=== PATIENT | male | born 1970 | race Hispanic/Latino ===

== ENCOUNTER 2017-05-16 22:24 | Inpatient (IN) | payer SELFPAY ==
[2017-05-16 23:05] LABS: #Eosinphils 0.1 thou/uL (0.0-0.7); #Lymphocytes 0.7 thou/uL (1.20-3.40); #Monocytes 0.8 thou/uL (0.11-0.59); #Neutrophils 11.8 thou/uL (1.40-6.50); %Eosinophils 0.5 % (0.0-10.0); %Lymphocytes 5.1 % (21.0-51.0); %Monocytes 6.1 % (0.0-10.0); Hematocrit 45.2 % (42.0-52.0); Mean Platelet Volume 7.2 fL (7.4-10.4); Red Blood Cell (RBC) Count 4.99 mill/uL (4.70-6.10); White Blood Cell (WBC) Count 13.4 thou/uL (4.8-10.8)
[2017-05-16] MEDS ORDERED: Acetaminophen 500 MG TAB ONE (23:14)
[2017-05-16 23:21] LABS: Bilirubin Negative (Negative); Blood, Urine Moderate (Negative); Glucose, Urine (Dipstick) Negative (Negative); Ketone, Urine Negative (Negative); Nitrite Negative (Negative); Protein, Urine (Dipstick) Trace mg/dL (Neg-Trace)
[2017-05-16 23:25] LABS: Bacteria/HPF 1+ HPF (None Seen); Hyaline Casts/LPF 0-3 HYALINE CAST LPF (0-3 Hyaline); WBC/HPF 21-50 HPF (0-3)
[2017-05-16 23:26] LABS: ALT (SGPT) 48 U/L (8-55); AST (SGOT) 43 U/L (5-34); Alkaline Phosphatase 119 U/L (40-150); Anion Gap 15 mmol/L (10-20); BUN (Urea Nitrogen) 14 mg/dL (8.9-20.6); Bilirubin, Total 1.4 mg/dL (0.2-1.2); Calc. Creatinine Clearance 0 mL/min (70-130); Calcium 9.9 mg/dL (7.8-10.44); Carbon Dioxide 24 mmol/L (22-29); Chloride 100 mmol/L (98-107); Estimated GFR-MDRD 64; Globulin 3.9 g/dL (2.4-3.5); Protein, Total 8.4 g/dL (6.0-8.3)
[2017-05-17 00:12] LABS: Troponin I 0.017 ng/mL (< 0.028)
[2017-05-17] MEDS ORDERED: CEFTRIAXONE ROCEPHIN IVPB SCH (00:45)
[2017-05-17] MEDS ORDERED: SODIUM CHLORIDE 0.9% IVPB SCH (00:45)
[2017-05-17] MEDS ORDERED: Ondansetron HCl/PF 4 MG/2 ML Vial ONE (00:57)
[2017-05-17] MEDS ORDERED: cefTRIAXone\\ROCEPHIN 2 GM in Sodium Chloride 0.9% 100 ML IVPB SCH (01:00)
[2017-05-17] MEDS ORDERED: Ondansetron HCl/PF 4 MG/2 ML Vial IVP PRN ×2 (02:25→03:19)
[2017-05-17] MEDS ORDERED: Acetaminophen 325 MG TAB PO PRN (02:25)
[2017-05-17] MEDS ORDERED: Ondansetron ODT 4 MG TAB SL PRN (02:25)
[2017-05-17 02:42] VITALS: BMI 37.4
[2017-05-17] MEDS ORDERED: Senokot 8.6 MG TAB PO PRN (03:19)
[2017-05-17] MEDS ORDERED: Diabetic Tussin 200 MG/10 ML UDCUP PO PRN (03:19)
[2017-05-17] MEDS ORDERED: Nitroglycerin 0.4 MG TAB (25 Tab Bottle) SL PRN (03:19)
[2017-05-17] MEDS ORDERED: Bisacodyl 5 MG TAB PO PRN (03:19)
[2017-05-17] MEDS ORDERED: hydrALAZINE 20 MG/ML VIAL SLOW IVP PRN (03:19)
[2017-05-17] MEDS ORDERED: Lorazepam 1 MG TAB PO PRN (03:19)
[2017-05-17] MEDS ORDERED: Calcium Carbonate 500 MG ChewTAB PO PRN (03:19)
[2017-05-17] MEDS ORDERED: Benzonatate 100 MG CAP PO PRN (03:19)
[2017-05-17] MEDS ORDERED: HYDROcodone/Acetaminophen 5/325 mg Tablet PO PRN (03:19)
[2017-05-17] MEDS ORDERED: Mag-Al 1200 mg/1200 mg/30 ML UDCUP PO PRN (03:19)
[2017-05-17] MEDS ORDERED: Potassium Chloride 20 MEQ TAB PO SCH (03:30)
[2017-05-17] MEDS: Sodium Chloride 0.9% 1,000 ML IV SCH ×2 (03:45→14:18)
--- NOTE | 2017-05-17 04:28 | HP ---
PRIMARY CARE PHYSICIAN: None. CHIEF COMPLAINT: Generalized bodyaches, malaise and fever, abdominal pain and cough. HISTORY OF PRESENT ILLNESS: Mr. Jaramillo is a 46-year-old male without any significant past m edical history who presented to the emergency room with the above complaints. The history is mainly obtained by the patient himself. Electronic medical records have been reviewed. According to Mr. Jaramillo he has been feeling poorly for the last 3 days. His symptoms started as body aches and he has been having subjective fevers, abdominal pain, nausea, cough, and some shortness of breath. He denies any chest pain. He denies any sick contacts. He denies any vomiting or diarrhe a. He denies any dysuria, frequency or urgency. Upon presentation to the emergency room, his blood pressure was 187/114 with a pulse of 124. He was saturating 96% on room air, his temperature was elevated to 102.9. He was found to have leukocytos is on lab examination as well as a mildly elevated bilirubin and AST. His urinalysis showed +1 bact eria with WBC, leukocyte esterase, but also along with squamous epithelial cells. A CT scan of the abdomen and pelvis was done with a presumptive diagnosis of urinary tract infection to rule out richard l stones. Formal report is pending at this time. He has received 2 grams of Rocephin in the emerge ncy room for presumed UTI and is now being admitted for meeting sepsis criteria due to a urinary tra ct infection likely. PAST MEDICAL HISTORY: Reviewed with the patient and none. PAST SURGICAL HISTORY: History of penile surgery. SOCIAL HISTORY: He drinks 2-3 beers daily. No history of tobacco abuse. FAMILY HISTORY: He denies any history of stroke, hypertension, diabetes, coronary artery disease in his family. ALLERGIES: None. MEDICATIONS: None. PSYCHIATRIC ILLNESS: None. REVIEW OF SYSTEMS: The following complete review of systems was negative, unless otherwise mentioned in the HPI or below: Constitutional: Weight loss or gain, ability to conduct usual activities. Skin: Rash, itching. Eyes: Double vision, pain. ENT/Mouth: Nose bleeding, neck stiffness, pain, tenderness. Cardiovascular: Palpitations, dyspnea on exertion, orthopnea. Respiratory: Shortness of breath, wheezing, cough, hemoptysis, fever or night sweats. Gastrointestinal: Poor appetite, abdominal pain, heartburn, nausea, vomiting, constipation, or diarrhea. Genitourinary: Urgency, frequency, dysuria, nocturia. Musculoskeletal: Pain, swelling. Neurologic/Psychiatric: Anxiety, depression. Allergy/Immunologic: Skin rash, bleeding tendency. LABORATORY DATA: CBC shows WBCs at 13.4 with 88% neutrophils, otherwise unremarkable. Serum chemis tries show potassium of 3.4. Blood sugar 137. Lactic acid 1. Total bilirubin 1.4, AST 43. Cardia c enzymes normal. Urinalysis as above. Chest x-ray is unremarkable by my review. PHYSICAL EXAMINATION: VITAL SIGNS: Temperature 99.1, pulse of 85, respirations 20, saturating 98% on room air, blood pres sure 151/71. GENERAL: In no acute distress, awake, alert, oriented x3 and appears nontoxic and comfortable. HEENT: Mucous membrane is moist and pink. No oropharyngeal exudate or erythema. Head is normoceph alic, atraumatic. Pupils equal, reactive to light and accommodation. Extraocular movements intact. NECK: Supple without any lymphadenopathy, JVD or bruit. CHEST: Clear to auscultation without any wheezing, rales or rhonchi. Rate and rhythm is regular wi thout any murmur, rubs or gallops. ABDOMEN: Soft, nontender, nondistended with positive bowel sounds. EXTREMITIES: Free of any cyanosis, clubbing, or edema. NEUROLOGIC: Nonfocal. SKIN: Free of any rashes or bruises, feels warm and dry to touch. PSYCHIATRIC: Normal affect. VASCULAR: +2 pedal pulses felt bilaterally. IMPRESSION AND PLAN: 1. Early sepsis with urinary tract infection. He will be continued on IV antibiotics. We will fol low the results of the CT scan to rule out nephrolithiasis as the cause. His urine sample will be r epeated as his previous sample appears contaminated. At this time, it is unclear whether his sympto ms are due to a viral illness or actual urinary tract infection. He will be on treatment neverthele ss until proven otherwise. Influenza testing has been done and negative and he has no evidence of p neumonia on the chest x-ray. 2. Hypertension. The patient most likely has essential hypertension that has not been diagnosed so far. We will start him on low dose amlodipine and monitor his blood pressure. 3. Hyperglycemia. Check hemoglobin A1c, but the patient denies any family history of diabetes. 4. Deep venous thrombosis and gastrointestinal prophylaxis. 5. PRN medication orders. DISPOSITION: The patient will be admitted for presumed UTI leading to sepsis-like criteria on lab e xamination. Further management will depend upon his clinical course. Estimated length of stay at [facility] 2-3 midnight. Follow the results of the urine and blood cultures.
[2017-05-17 05:38] LABS: Hemoglobin A1c 4.9 % (4.0-6.0)
[2017-05-17 05:51] LABS: Band 4 % (5-11); Mean Platelet Volume 7.4 fL (7.4-10.4); Myelocyte 1 % (0-0); Neutrophil 84 % (42-75); White Blood Cell (WBC) Count 10.1 thou/uL (4.8-10.8)
[2017-05-17 05:52] LABS: Amphetamine Not Detected (NotDetected); Methadone Not Detected (NotDetected); Methamphetamine Not Detected (NotDetected)
[2017-05-17] MEDS: Acetaminophen 325 MG TAB PO PRN ×3 (06:20→20:50)
[2017-05-17 06:22] LABS: Anion Gap 10 mmol/L (10-20); BUN (Urea Nitrogen) 10 mg/dL (8.9-20.6); Calc. Creatinine Clearance 128 mL/min (70-130); Calcium 8.3 mg/dL (7.8-10.44); Carbon Dioxide 24 mmol/L (22-29); Chloride 107 mmol/L (98-107); Estimated GFR-MDRD Greater than 90
[2017-05-17 06:51] LABS: Bilirubin Negative (Negative); Blood, Urine Moderate (Negative); Glucose, Urine (Dipstick) Negative (Negative); Ketone, Urine Negative (Negative); Nitrite Negative (Negative); Protein, Urine (Dipstick) Trace mg/dL (Neg-Trace); Urobilinogen 0.2 mg/dL (0.2-1.0)
--- NOTE | 2017-05-17 07:09 | RAD ---
AP VIEW OF CHEST: Date: 05/16/17 INDICATION: Fever, body aches, and abdominal pain. IMPRESSION: No acute cardiopulmonary abnormality. COMMENTS: No comparisons are available. Lungs are clear. Cardiomediastinal silhouette is within normal limits. No acute osseous abnormality is evident. POS: [facility]
[2017-05-17 07:15] LABS: Bacteria/HPF None Seen HPF (None Seen); Hyaline Casts/LPF 0-3 HYALINE CAST LPF (0-3 Hyaline); RBC/HPF 0-3 HPF (0-3); Squamous Epithelial 0-3 HPF (0-3)
[2017-05-17] MEDS: Amlodipine 5 MG TAB PO SCH (08:51)
[2017-05-17] MEDS: Enoxaparin Sodium 40 MG/0.4 ML SYRINGE SC SCH (08:52)
--- NOTE | 2017-05-17 08:56 | CT ---
PRELIMINARY REPORT/[facility]/EMERGENCY AFTER HOURS PROCEDURE: EXAM: CT Abdomen and Pelvis Without Intravenous Contrast EXAM DATE/TIME: 05/17/2017 12:53 AM CLINICAL HISTORY: 46 years old, male; Pain; Abdominal pain; Generalized; Patient HX: R/O stone TECHNIQUE: Axial computed tomography images of the abdomen and pelvis without intravenous contrast. Coronal reformatted images were created and reviewed. COMPARISON: No relevant prior studies available. FINDINGS: Lower thorax: No acute findings. ABDOMEN: Liver: Suspected fatty infiltration of the liver. Gallbladder and bile ducts: Unremarkable. No calcified stones. No ductal dilation. Pancreas: Unremarkable. No ductal dilation. Spleen: Unremarkable. No splenomegaly. Adrenals: Unremarkable. No mass. Kidneys and ureters: Rounded 1-3 mm stones bilateral kidneys. No evidence of stones within the urete rs or bladder. No hydronephrosis. Stomach and bowel: No evidence of bowel obstruction. No mucosal thickening. Appendix: Visualized portions of appendix appear normal. PELVIS: Bladder: See above. Reproductive: Prostate appears within normal limits size with marginated the surrounding fat. ABDOMEN and PELVIS: Intraperitoneal space: Unremarkable. No free air. No significant fluid collection. Bones/joints: No acute fracture. No dislocation. Soft tissues: Rounded 1 cm fat and fluid containing umbilical hernia. Vasculature: Unremarkable. No abdominal aortic aneurysm. Lymph nodes: Unremarkable. No enlarged lymph nodes. IMPRESSION: 1. No evidence of bowel obstruction. 2. Bilateral renal nonobstructive stones. No evidence of obstructive uropathy or obstructive nephrop athy. 3. Possible mild prostatitis. 4. Suspected fatty infiltration of the liver. Thank you for allowing us to participate in the care of your patient. Dictated and Authenticated by: Suzan Machado MD 05/17/2017 1:58 AM Central Time ([place] \T\ [place]) FINAL REPORT EMERGENCY AFTER HOURS CT ABDOMEN AND PELVIS WITHOUT IV CONTRAST: Date: 05/17/17 HISTORY: Abdominal pain, fever, chills, and body aches for past 3 days. IMPRESSION: 1. Tiny, nonobstructing, approximately 2.0 mm calculus inferior pole right kidney. No additional re nal or ureteral calculi are seen bilaterally, and there is no hydronephrosis. 2. Fatty infiltration of the liver. 3. No CT evidence of appendicitis. 4. Very small, fat-containing, umbilical hernia with suggestion of a tiny amount of fluid within th e hernia. 5. Minimal nonspecific stranding adjacent to the prostate gland. 6. No fluid collection or free fluid is seen in the abdomen or pelvis. Findings are in agreement with the preliminary report by Anita. POS: [facility]
[2017-05-17] MEDS ORDERED: cefTRIAXone\\ROCEPHIN 1 GM in Sodium Chloride 0.9% 100 ML IVPB SCH (09:00)
[2017-05-17] MEDS ORDERED: FLU VACC QS2017-18 36 mo. & older 0.5 ML SYRINGE IM ONE (09:00)
--- NOTE | 2017-05-17 11:59 | PDOC.EVN ---
Event Note - Event Note Event Note: Pt was admitted after midnight. Pt seen and examinated. Labs reviewed CT abdomen and pelvis reviewed. No evidence of stone Continue current treatment Case d/w pt & rn
[2017-05-17] MEDS: cloNIDine 0.1 MG TAB PO PRN (14:22)
[2017-05-17] MEDS: Loratadine 10 MG TAB PO PRN (14:22)
[2017-05-17] MEDS: cefTRIAXone\\ROCEPHIN 1 GM, Syringe 0.4 ML in Sterile Water 9.6 ML SLOW IVP SCH (20:46)
[2017-05-17] MEDS: traMADol HCl 50 MG TAB PO PRN (20:51)
[2017-05-18] MEDS: Sodium Chloride 0.9% 1,000 ML IV SCH (04:17)
[2017-05-18] MEDS: Amlodipine 5 MG TAB PO SCH (07:25)
[2017-05-18] MEDS: Enoxaparin Sodium 40 MG/0.4 ML SYRINGE SC SCH (07:27)
[2017-05-18] MEDS: Acetaminophen 325 MG TAB PO PRN ×2 (07:38→15:23)
--- NOTE | 2017-05-18 13:19 | PDOC.PN ---
- Subjective Encounter Start Date: 05/18/17 Encounter Start Time: 10:15 -: old records requested/rev Patient seen and examined. No new complaints. No overnight events - Objective MAR Reviewed: Yes Vital Signs & Weight: Vital Signs (12 hours) Temp Pulse Resp BP BP BP Pulse Ox 05/18/17 08:00 99.9 F H 94 20 05/18/17 07:32 99.9 F H 94 20 176/97 H 97 05/18/17 07:25 94 176/97 H 05/18/17 04:40 95 05/18/17 04:00 98 F 84 18 159/90 H 96 Weight Weight 191 lb 9 oz I&O: 05/17/17 05/18/17 05/19/17 06:59 06:59 06:59 Intake Total 200 1999 Balance 200 1999 Result Diagrams: 05/17/17 05:03 05/17/17 05:03 Radiology Reviewed by me: Yes Phys Exam - Physical Examination Constitutional: NAD HEENT: PERRLA, moist MMs, sclera anicteric Neck: no JVD, supple Respiratory: no wheezing, no rales, no rhonchi Cardiovascular: RRR, no significant murmur, no rub Gastrointestinal: soft, non-tender, no distention, positive bowel sounds Musculoskeletal: no edema, pulses present Neurological: non-focal, normal sensation, moves all 4 limbs Psychiatric: normal affect, A&O x 3 Skin: no rash, normal turgor Dx/Plan (1) Prostatitis Code(s): N41.9 - INFLAMMATORY DISEASE OF PROSTATE, UNSPECIFIED Status: Acute Qualifiers: Prostatitis type: acute Qualified Code(s): N41.0 - Acute prostatitis (2) Sepsis Code(s): A41.9 - SEPSIS, UNSPECIFIED ORGANISM Status: Acute (3) UTI (urinary tract infection) Status: Acute (4) Hypertension Code(s): I10 - ESSENTIAL (PRIMARY) HYPERTENSION Status: Chronic (5) Obesity (BMI 30-39.9) Code(s): E66.9 - OBESITY, UNSPECIFIED Status: Chronic (6) Hypokalemia Code(s): E87.6 - HYPOKALEMIA Status: Resolved - Plan cont current plan of care, continue antibiotics * continue IV rocephin * DC IVF * follow on culture result * medication reviewed as below * symptomatic treatment. Review of Systems - Review of Systems ENT: negative: Ear Pain, Ear Discharge, Nose Pain, Nose Discharge, Nose Congestion, Mouth Pain, Mouth Swelling, Throat Pain, Throat Swelling, Other Respiratory: negative: Cough, Dry, Shortness of Breath, Hemoptysis, SOB with Excertion, Pleuritic Pain, Sputum, Wheezing Cardiovascular: negative: Chest Pain, Palpitations, Orthopnea, Paroxysmal Noc. Dyspnea, Edema, Light Headedness, Other Gastrointestinal: negative: Nausea, Vomiting, Abdominal Pain, Diarrhea, Constipation, Melena, Hematochezia, Other Genitourinary: negative: Dysuria, Frequency, Incontinence, Hematuria, Retention , Other Musculoskeletal: negative: Neck Pain, Shoulder Pain, Arm Pain, Back Pain, Hand Pain, Leg Pain, Foot Pain, Other Skin: negative: Rash, Lesions, Girma, Bruising, Other - Medications/Allergies Allergies/Adverse Reactions: Allergies Allergy/AdvReac Type Severity Reaction Status Date / Time No Known Drug Allergies Allergy Verified 05/17/17 03:37 Medications: Current Medications Acetaminophen (Tylenol) 650 mg PO Q4H PRN PRN Reason: Headache/Fever or Pain Last Admin: 05/18/17 07:38 Dose: 650 mg Hydrocodone Bitart/Acetaminophen ([place] 5/325) 1 tab PO Q4H PRN PRN Reason: Moderate Pain (4-6) Al Hydroxide/Mg Hydroxide (Maalox) 30 ml PO Q6H PRN PRN Reason: Heartburn or Indigestion Amlodipine Besylate (Norvasc) 2.5 mg PO DAILY [facility] Last Admin: 05/18/17 07:25 Dose: 2.5 mg Benzonatate (Tessalon) 100 mg PO Q4H PRN PRN Reason: Cough Bisacodyl (Dulcolax) 10 mg PO DAILYPRN PRN PRN Reason: Constipation Calcium Carbonate (Tums) 1,000 mg PO Q4H PRN PRN Reason: Heartburn or Indigestion Clonidine (Catapres) 0.1 mg PO Q4H PRN PRN Reason: Systolic BP > 160 Last Admin: 05/17/17 14:22 Dose: 0.1 mg Enoxaparin Sodium (Lovenox) 40 mg SC 0900 [facility] Last Admin: 05/18/17 07:27 Dose: 40 mg Guaifenesin (Robitussin Sf) 200 mg PO Q4H PRN PRN Reason: Cough Hydralazine HCl (Apresoline) 10 mg SLOW IVP Q4H PRN PRN Reason: Systolic BP > 170 Sodium Chloride (Normal Saline 0.9%) 1,000 mls @ 75 mls/hr IV .[id number] [facility] Last Admin: 05/18/17 04:17 Dose: 1,000 mls Ceftriaxone Sodium 1 gm/ (Syringe 0.4 ml/ Sterile Water) 10 mls @ 120 mls/hr SLOW IVP 2100 [facility] Last Admin: 05/17/17 20:46 Dose: 10 mls Loratadine (Claritin) 10 mg PO DAILYPRN PRN PRN Reason: Sinus Symptoms Last Admin: 05/17/17 14:22 Dose: 10 mg Lorazepam (Ativan) 1 mg PO Q4H PRN PRN Reason: Anxiety/Agitation Nitroglycerin (Nitrostat) 0.4 mg SL Q5MIN PRN PRN Reason: Chest Pain Ondansetron HCl (Zofran) 4 mg IVP Q6H PRN PRN Reason: Nausea/Vomiting Senna (Senokot) 2 tab PO HSPRN PRN PRN Reason: Constipation Tramadol HCl (Ultram) 50 mg PO Q4H PRN PRN Reason: Moderate Pain (4-6) Last Admin: 05/17/17 20:51 Dose: 50 mg
[2017-05-18] MEDS: cloNIDine 0.1 MG TAB PO PRN (15:33)
[2017-05-18] MEDS: cefTRIAXone\\ROCEPHIN 1 GM, Syringe 0.4 ML in Sterile Water 9.6 ML SLOW IVP SCH (21:05)
[2017-05-18] MEDS: traMADol HCl 50 MG TAB PO PRN (23:56)
[2017-05-19] MEDS: Enoxaparin Sodium 40 MG/0.4 ML SYRINGE SC SCH (09:27)
[2017-05-19] MEDS: Amlodipine 5 MG TAB PO SCH (09:28)
--- NOTE | 2017-05-19 13:07 | PDOC.PN ---
- Subjective Encounter Start Date: 05/19/17 Encounter Start Time: 11:00 Patient seen and examined. No new complaints. No overnight events - Objective MAR Reviewed: Yes Vital Signs & Weight: Vital Signs (12 hours) Temp Pulse Resp BP Pulse Ox 05/19/17 09:28 79 05/19/17 08:00 98.8 F 79 22 H 99 05/19/17 05:01 98.8 F 79 22 H 137/86 96 05/19/17 01:48 76 149/85 H Weight Weight 191 lb 9 oz I&O: 05/18/17 05/19/17 05/20/17 06:59 06:59 06:59 Intake Total 1999 480 Balance 1999 480 Result Diagrams: 05/17/17 05:03 05/17/17 05:03 Phys Exam - Physical Examination Constitutional: NAD HEENT: PERRLA, moist MMs, sclera anicteric Neck: no JVD, supple Respiratory: no wheezing, no rales, no rhonchi Cardiovascular: RRR, no significant murmur, no rub Gastrointestinal: soft, non-tender, no distention, positive bowel sounds Musculoskeletal: no edema, pulses present Neurological: non-focal, normal sensation, moves all 4 limbs Psychiatric: normal affect, A&O x 3 Skin: no rash, normal turgor Dx/Plan (1) Prostatitis Code(s): N41.9 - INFLAMMATORY DISEASE OF PROSTATE, UNSPECIFIED Status: Acute Qualifiers: Prostatitis type: acute Qualified Code(s): N41.0 - Acute prostatitis (2) Sepsis Code(s): A41.9 - SEPSIS, UNSPECIFIED ORGANISM Status: Acute (3) UTI (urinary tract infection) Status: Acute (4) Hypertension Code(s): I10 - ESSENTIAL (PRIMARY) HYPERTENSION Status: Chronic (5) Obesity (BMI 30-39.9) Code(s): E66.9 - OBESITY, UNSPECIFIED Status: Chronic - Plan cont current plan of care, continue antibiotics * continue antibiotics as ordered below * medication reviewed as below * symptomatic treatment * expecting discharge tomorrow. Review of Systems - Review of Systems ENT: negative: Ear Pain, Ear Discharge, Nose Pain, Nose Discharge, Nose Congestion, Mouth Pain, Mouth Swelling, Throat Pain, Throat Swelling, Other Respiratory: negative: Cough, Dry, Shortness of Breath, Hemoptysis, SOB with Excertion, Pleuritic Pain, Sputum, Wheezing Cardiovascular: negative: Chest Pain, Palpitations, Orthopnea, Paroxysmal Noc. Dyspnea, Edema, Light Headedness, Other Gastrointestinal: negative: Nausea, Vomiting, Abdominal Pain, Diarrhea, Constipation, Melena, Hematochezia, Other Genitourinary: negative: Dysuria, Frequency, Incontinence, Hematuria, Retention , Other Musculoskeletal: negative: Neck Pain, Shoulder Pain, Arm Pain, Back Pain, Hand Pain, Leg Pain, Foot Pain, Other - Medications/Allergies Allergies/Adverse Reactions: Allergies Allergy/AdvReac Type Severity Reaction Status Date / Time No Known Drug Allergies Allergy Verified 05/17/17 03:37 Medications: Current Medications Acetaminophen (Tylenol) 650 mg PO Q4H PRN PRN Reason: Headache/Fever or Pain Last Admin: 05/18/17 15:23 Dose: 650 mg Hydrocodone Bitart/Acetaminophen ([place] 5/325) 1 tab PO Q4H PRN PRN Reason: Moderate Pain (4-6) Al Hydroxide/Mg Hydroxide (Maalox) 30 ml PO Q6H PRN PRN Reason: Heartburn or Indigestion Amlodipine Besylate (Norvasc) 2.5 mg PO DAILY [facility] Last Admin: 05/19/17 09:28 Dose: 2.5 mg Benzonatate (Tessalon) 100 mg PO Q4H PRN PRN Reason: Cough Bisacodyl (Dulcolax) 10 mg PO DAILYPRN PRN PRN Reason: Constipation Last Admin: 05/18/17 15:23 Dose: 10 mg Calcium Carbonate (Tums) 1,000 mg PO Q4H PRN PRN Reason: Heartburn or Indigestion Clonidine (Catapres) 0.1 mg PO Q4H PRN PRN Reason: Systolic BP > 160 Last Admin: 05/18/17 15:33 Dose: 0.1 mg Enoxaparin Sodium (Lovenox) 40 mg SC 0900 [facility] Last Admin: 05/19/17 09:27 Dose: 40 mg Guaifenesin (Robitussin Sf) 200 mg PO Q4H PRN PRN Reason: Cough Hydralazine HCl (Apresoline) 10 mg SLOW IVP Q4H PRN PRN Reason: Systolic BP > 170 Last Admin: 05/19/17 00:34 Dose: 10 mg Ceftriaxone Sodium 1 gm/ (Syringe 0.4 ml/ Sterile Water) 10 mls @ 120 mls/hr SLOW IVP 2100 [facility] Last Admin: 05/18/17 21:05 Dose: 10 mls Loratadine (Claritin) 10 mg PO DAILYPRN PRN PRN Reason: Sinus Symptoms Last Admin: 05/17/17 14:22 Dose: 10 mg Lorazepam (Ativan) 1 mg PO Q4H PRN PRN Reason: Anxiety/Agitation Nitroglycerin (Nitrostat) 0.4 mg SL Q5MIN PRN PRN Reason: Chest Pain Ondansetron HCl (Zofran) 4 mg IVP Q6H PRN PRN Reason: Nausea/Vomiting Senna (Senokot) 2 tab PO HSPRN PRN PRN Reason: Constipation Tramadol HCl (Ultram) 50 mg PO Q4H PRN PRN Reason: Moderate Pain (4-6) Last Admin: 05/18/17 23:56 Dose: 50 mg
[2017-05-19] MEDS: cefTRIAXone\\ROCEPHIN 1 GM, Syringe 0.4 ML in Sterile Water 9.6 ML SLOW IVP SCH (21:40)
[2017-05-19] MEDS: Loratadine 10 MG TAB PO PRN (23:46)
[2017-05-20] MEDS: Amlodipine 5 MG TAB PO SCH (07:55)
[2017-05-20] MEDS: Enoxaparin Sodium 40 MG/0.4 ML SYRINGE SC SCH (07:55)
[2017-05-20 07:59] VITALS: BP 129/87; TEMP 98.4
--- NOTE | 2017-05-20 13:52 | DIS ---
DATE OF ADMISSION: 05/17/2017 DATE OF DISCHARGE: 05/20/2017 PRIMARY CARE PHYSICIAN: Dr. Kalin Blood. DISCHARGE DISPOSITION: Home. PRIMARY DISCHARGE DIAGNOSES: 1. Acute prostatitis. 2. Sepsis, resolved. 3. Urinary tract infection. 4. Hypokalemia, corrected. SECONDARY DISCHARGE DIAGNOSES: Hypertension, obesity with BMI of 37. PRIMARY PROCEDURE/OPERATION: None. RADIOLOGICAL INVESTIGATION: Chest x-ray, abdomen and pelvis CT scan. SIGNIFICANT LABORATORY DATA: Hemoglobin 13.6, creatinine 0.88. Electrolytes normal. LFTs normal. Urinalysis suggestive of UTI. DISCHARGE MEDICATIONS: Ciprofloxacin 500 mg p.o. b.i.d. CONTRAINDICATIONS: None. CODE STATUS: FULL CODE. INPATIENT CONSULTANTS: None. ALLERGIES: No known drug allergy. DISCHARGE PLAN: Post hospital, the patient will follow up with primary care physician. The patient is also advised to follow up with the Urology after discharge. HOSPITAL COURSE: A 46-year-old male who was admitted by Dr. Coronel, please see her H\T\P for furth er details. The patient was admitted for fever, malaise, perineal pain and body ache. The patient was diagnosed with urinary tract infection. He was meeting sepsis with systemic inflammatory respon se syndrome criteria. His chest x-ray was normal. Abdomen and pelvis CT scan showed prostatitis an d nonobstructive nephrolithiasis. His urinalysis was also abnormal. The patient was treated for UT I and prostatitis with Rocephin while in hospital. On discharge, we changed to Cipro for another 15 days. His blood culture and urine culture remained negative. His influenza was negative. The patient remained hemodynamically stable. The patient is seen and examined at bedside today. PHYSICAL EXAMINAITON: VITAL SIGNS: Today, temperature 98.4, pulse 80, respiratory rate 16, saturation 98%, blood pressure 129/87, weight 191 pounds. GENERAL: The patient is currently alert, awake, no acute distress. HEAD: Normocephalic, atraumatic. LUNGS: Clear. CARDIAC: S1, S2 regular without any murmur. ABDOMEN: Soft and benign. EXTREMITIES: No edema. NEUROLOGIC: Nonfocal examination. The patient is medically stable for discharge today.
--- NOTE | 2017-05-21 18:14 | EKG ---
Test Reason : Blood Pressure : / mmHG Vent. Rate : 106 BPM Atrial Rate : 106 BPM P-R Int : 152 ms QRS Dur : 106 ms QT Int : 352 ms P-R-T Axes : 065 054 015 degrees QTc Int : 467 ms Sinus tachycardia Otherwise normal ECG Confirmed by SHIRLEY KLINE M.D. ([id number]), managing editor KADE COLEMAN ([id number] on 05/21/2017 6:13:48 PM Referred By: Confirmed By:SHIRLEY KLINE M.D.
== END 2017-05-20 10:18 | disposition home or self-care (01) | DRG 872 ==
LOC: ERS 22:24 → T4-B 05-17 01:08
PROVIDERS: ADMIT Internal Medicine; ATTEND Internal Medicine
DX: A41.9 Sepsis, unspecified organism (principal); I10 Essential (primary) hypertension; N39.0 Urinary tract infection, site not specified; N41.0 Acute prostatitis; R73.9 Hyperglycemia, unspecified; E87.6 Hypokalemia; E66.9 Obesity, unspecified; Z68.37 Body mass index [BMI] 37.0-37.9, adult
CPT/HCPCS: 36415; 71010; 74176; 80048; 80053; 80306; 81003; 81015; 82550; 82553; 83036; 83605; 84484; 85007; 85025; 85027; 87040; 87086; 93005; 96361; 96365; 96375; A4216; J0360; J0696; J1650; J2405; J7050